=== PATIENT | male | born 1965 | race Caucasian/White ===

== ENCOUNTER 2016-12-07 08:22 | Outpatient (CLI) | payer OTHER ==
[2016-12-07 09:23] LABS: eGFR (African) > 60; eGFR (Non-African) > 60
== END 2016-12-07 08:23 ==
LOC: LAB 08:22
PROVIDERS: ATTEND Nurse Practitioner
DX: E11.65 Type 2 diabetes mellitus with hyperglycemia (principal)
CPT/HCPCS: 36415; 80053; 83036

== ENCOUNTER 2018-01-15 12:42 | Outpatient (CLI) | payer OTHER ==
[2018-01-15 13:21] LABS: eGFR (African) > 60; eGFR (Non-African) > 60
== END 2018-01-15 13:53 ==
LOC: LAB 12:42
PROVIDERS: ATTEND Nurse Practitioner
DX: E11.65 Type 2 diabetes mellitus with hyperglycemia (principal)
CPT/HCPCS: 36415; 80053; 80061; 82043; 83036

== ENCOUNTER 2019-03-22 11:34 | Outpatient (CLI) | payer OTHER ==
[2019-03-22 13:16] LABS: eGFR (Non-African) > 60
[2019-03-22 13:17] LABS: HDL 43 mg/dL (>40)
== END 2019-03-22 11:36 ==
LOC: LAB 11:34
PROVIDERS: ATTEND Nurse Practitioner
DX: E11.65 Type 2 diabetes mellitus with hyperglycemia (principal)
CPT/HCPCS: 36415; 80053; 80061; 82043; 83036; 84443